=== PATIENT | male | born 1955 | race Caucasian/White ===

== ENCOUNTER 2019-02-01 12:38 | Emergency (ER) | payer OTHER ==
[~2019-02-01] VITALS: Ht 170.2 cm; Wt 61.7 kg
[2019-02-01 12:48] VITALS: Ht 170.2 cm; Wt 61.7 kg
[2019-02-01 13:36] VITALS: BP 117/75
== END 2019-02-01 13:36 | disposition home or self-care (01) ==
LOC: ED 12:38
DX: M25.511 Pain in right shoulder (principal); M25.512 Pain in left shoulder; I11.0 Hypertensive heart disease with heart failure; I50.9 Heart failure, unspecified; E11.9 Type 2 diabetes mellitus without complications; Z90.89 Acquired absence of other organs
CPT/HCPCS: J1885

== ENCOUNTER 2019-03-12 18:44 | Emergency (ER) | payer OTHER ==
[~2019-03-12] VITALS: Ht 175.3 cm; Wt 61.2 kg
[2019-03-12 18:50] VITALS: Ht 175.3 cm; Wt 61.2 kg
[2019-03-13] VITALS: BP 127/84
== END 2019-03-13 | disposition home or self-care (01) ==
LOC: ED 18:44
DX: S01.01XA Laceration without foreign body of scalp, initial encounter (principal); S09.8XXA Other specified injuries of head, initial encounter; E11.9 Type 2 diabetes mellitus without complications; I11.0 Hypertensive heart disease with heart failure; I50.9 Heart failure, unspecified; Z88.1 Allergy status to other antibiotic agents; W01.0XXA Fall on same level from slipping, tripping and stumbling without subsequent striking against object, initial encounter; Y93.89 Activity, other specified; Y92.89 Other specified places as the place of occurrence of the external cause; Y99.8 Other external cause status
CPT/HCPCS: 90715

== ENCOUNTER 2019-03-19 08:17 | Emergency (ER) | payer OTHER ==
[~2019-03-19] VITALS: Ht 175.3 cm; Wt 62.6 kg
[2019-03-19 08:20] VITALS: Ht 175.3 cm; Wt 62.6 kg
[2019-03-19 09:20] VITALS: BP 108/65
== END 2019-03-19 09:20 | disposition home or self-care (01) ==
LOC: ED 08:17
DX: S01.01XD Laceration without foreign body of scalp, subsequent encounter (principal); I11.0 Hypertensive heart disease with heart failure; I50.9 Heart failure, unspecified; E11.9 Type 2 diabetes mellitus without complications; Z88.1 Allergy status to other antibiotic agents; X58.XXXD Exposure to other specified factors, subsequent encounter

== ENCOUNTER 2019-06-11 14:07 | Emergency (ER) | payer OTHER ==
[~2019-06-11] VITALS: Ht 175.3 cm; Wt 63.5 kg
[2019-06-11 14:13] VITALS: Ht 175.3 cm; Wt 63.5 kg
[2019-06-11 15:36] LABS: BASOPHIL % 0.4 % (0-2); PLATELET COUNT 213 x10^3mcL (130-400); RED CELL DISTRIBUTION WIDTH 13.1 % (11.5-14.5)
[2019-06-11 15:46] LABS: CALCIUM 8.5 mg/dL (8.5-10.1); CARBON DIOXIDE 32.5 mmol/L (21-32); CHLORIDE SERUM 98 mmol/L (98-107); CREATININE SERUM 1.1 mg/dL (0.7-1.3); GFR1 > 60 mL/min; GLUCOSE SERUM 413 mg/dL (74-106); POTASSIUM SERUM 5.1 mmol/L (3.5-5.1); SODIUM SERUM 135 mmol/L (136-145)
[2019-06-11 15:51] LABS: ALKALINE PHOSPHATASE 210 U/L (46-116); ALT/SGPT 32 U/L (16-63); AST/SGOT 16 U/L (15-37); BILIRUBIN TOTAL 1.05 mg/dL (0.20-1.00); TOTAL PROTEIN, SERUM 7.2 g/dL (6.4-8.2)
[2019-06-11 17:15] VITALS: BP 118/68
== END 2019-06-11 17:15 | disposition home or self-care (01) ==
LOC: ED 14:07
PROVIDERS: Emergency Medicine
DX: M54.9 Dorsalgia, unspecified (principal); M25.512 Pain in left shoulder; M25.511 Pain in right shoulder; I11.0 Hypertensive heart disease with heart failure; I50.9 Heart failure, unspecified; E11.9 Type 2 diabetes mellitus without complications; K21.9 Gastro-esophageal reflux disease without esophagitis; Z90.89 Acquired absence of other organs
CPT/HCPCS: 82962; 83880; J1815; Q0092

== ENCOUNTER 2020-01-20 17:39 | Emergency (ER) | payer OTHER ==
[~2020-01-20] VITALS: Ht 172.7 cm; Wt 81.6 kg
[2020-01-20 17:49] VITALS: Ht 172.7 cm; Wt 81.6 kg
[2020-01-20 18:11] LABS: BASOPHIL % 1.1 % (0-2); PLATELET COUNT 197 x10^3mcL (130-400); RED CELL DISTRIBUTION WIDTH 13.4 % (11.5-14.5)
[2020-01-20 18:28] LABS: CALCIUM 8.5 mg/dL (8.5-10.1); CARBON DIOXIDE 30.4 mmol/L (21-32); CHLORIDE SERUM 100 mmol/L (98-107); CREATININE SERUM 1.2 mg/dL (0.7-1.3); GFR1 > 60 mL/min; GLUCOSE SERUM 318 mg/dL (74-106); POTASSIUM SERUM 3.8 mmol/L (3.5-5.1); SODIUM SERUM 137 mmol/L (136-145)
[2020-01-20 18:33] LABS: ALBUMIN 3.8 g/dL (3.4-5.0); ALKALINE PHOSPHATASE 232 U/L (46-116); ALT/SGPT 43 U/L (16-63); AST/SGOT 24 U/L (15-37); BILIRUBIN TOTAL 1.5 mg/dL (0.20-1.00); MAGNESIUM 1.8 mg/dL (1.8-2.4)
[2020-01-20 19:30] VITALS: BP 142/75
== END 2020-01-20 19:30 | disposition home or self-care (01) ==
LOC: ED 17:39
PROVIDERS: Emergency Medicine
DX: R53.1 Weakness (principal); M79.604 Pain in right leg; R20.2 Paresthesia of skin
CPT/HCPCS: 36415; 82962